=== PATIENT | female | born 1975 | race Caucasian/White ===

== ENCOUNTER 2022-11-14 09:10 | Outpatient (OUT) | payer OTHER, SELFPAY ==
[2022-11-14 09:23] LABS: Basophils Percent Auto 0.8 % (0.2-2.0); Eosinophils Absolute Auto 0.1 10^3/uL (0.0-0.7); Eosinophils Percent Auto 3.8 % (0.9-7.0); Hematocrit 38.8 % (36.0-48.0); Hemoglobin 12.7 g/dL (12.0-16.0); Immature Granulocytes Abs Auto 0.01 10^3/uL (0.00-0.03); Immature Granulocytes Pct Auto 0.3 % (0.0-0.5); Lymphocytes Absolute Auto 0.9 10^3/uL (1.2-3.8); Lymphocytes Percent Auto 24.3 % (20.5-60.0); Mean Corpuscular HGB Conc 32.7 g/dL (29.9-35.2); Mean Corpuscular Hemoglobin 29.8 pg (26.7-34.0); Mean Corpuscular Volume 91.1 fL (81.0-99.0); Mean Platelet Volume 9.4 fL (9.5-13.5); Monocytes Absolute Auto 0.5 10^3/uL (0.3-0.8); Monocytes Percent Auto 14.5 % (1.7-12.0); Neutrophils Absolute Auto 2.1 10^3/uL (1.4-6.5); Neutrophils Percent Auto 56.3 % (43.0-75.0); Platelet Count 258 10^3/uL (150-450); Red Blood Count 4.26 10^6/uL (4.20-5.40); Red Cell Distribution Width 12.9 % (11.0-15.0); White Blood Count 3.7 10^3/uL (4.0-11.0)
[2022-11-14 09:38] LABS: Estimated Average Glucose 108 mg/dL; Glycohemoglobin A1C 5.4 % (4.5-6.2)
[2022-11-14 09:48] LABS: Alanine Aminotransferase 20 U/L (14-59); Albumin Globulin Ratio 1.2; Albumin Level 3.8 g/dL (3.4-5.0); Alkaline Phosphatase 92 U/L (46-116); Anion Gap 12.5; Aspartate Amino Transferase 14 U/L (15-37); BUN Creatinine Ratio 12.4; Bilirubin Total 0.9 mg/dL (0.2-1.0); Calcium 8.8 mg/dL (8.5-10.1); Carbon Dioxide 28.5 mmol/L (21.0-32.0); Chloride 103 mmol/L (98-107); Cholesterol 199 mg/dL (<=200); Estimated GFR (African America >60 (>=60); Estimated GFR (Non-African Ame >60 (>=60); Globulin 3.3 g/dL; Glucose 91 mg/dL (74-106); HDL Cholesterol 67 mg/dL (40-60); Sodium 140 mmol/L (136-145); Total Protein 7.1 g/dL (6.4-8.2); Triglycerides 56 mg/dL (<=150); VLDL CHOLESTEROL 11.2 mg/dL
[2022-11-15 11:14] LABS: Insulin 5.7 uIU/mL (2.6-24.9)
== END 2022-11-14 09:11 | disposition home or self-care (01) ==
LOC: MAMMO 09:10
PROVIDERS: PCP Nurse Practitioner Family; Visit Provider Nurse Practitioner Family
DX: R53.83 Other fatigue (principal); R73.09 Other abnormal glucose; D64.9 Anemia, unspecified
CPT/HCPCS: 36415; 80053; 80061; 83036; 83525; 83540; 84436; 84443; 84479; 85025

== ENCOUNTER 2022-12-02 09:33 | Outpatient (OUT) | payer OTHER, SELFPAY ==
--- NOTE | 2022-12-02 09:36 | MM_ITS ---
Patient: BOB SANFORD Exam Date: 12/02/2022 : 1975 Gender:F Ordering : [facility] Admission #: [id number] Family : Order #: [id number] CLICK HERE TO VIEW EXAM RADIOLOGY REPORT PROCEDURE: MM TOMOSYNTHESIS SCREENING BI COMPARISON: MG MAMM SCREEN 3D CAESAR CAD, 08/16/2021. MG MAMM SCREEN CAESAR W CAD, 01/18/2020. MG MAMM SCREEN CAESAR W CAD, 11/04/2018. MG MAMM SCREEN CAESAR W CAD, 06/28/2015. INDICATIONS: Screening mammogram Z12.31 Calculator Name NCI Breast Cancer Risk Assessment Tool 5 Year Breast Cancer Risk 1.00% Lifetime Breast Cancer Risk 10.30% Personal Breast Cancer No Personal Ovarian Cancer No Treatments None Family Cancers Grandmother-maternal with breast cancer at age ~68. LOCATION: [facility] BREAST COMPOSITION: Heterogeneously dense,which may obscure small masses. FINDINGS: DIAGNOSTIC CATEGORY 1--NEGATIVE. RIGHT BREAST: No significant suspicious finding. No significant change has occurred. LEFT BREAST: No significant suspicious finding. No significant change has occurred. RECOMMENDATIONS: ROUTINE MAMMOGRAM AND CLINICAL EVALUATION IN 12 MONTHS. PLEASE NOTE: A NORMAL MAMMOGRAM DOES NOT EXCLUDE THE POSSIBILITY OF BREAST CANCER. A CLINICALLY SUSPICIOUS PALPABLE LUMP SHOULD BE BIOPSIED. Dictated by: Naun Graham M.D. on 12/02/2022 at 14:41 Approved by: Naun Graham M.D. on 12/02/2022 at 14:45
[2022-12-02 10:53] LABS: Free T3 2.49 pg/mL (2.18-3.98); Thyroid Stimulating Hormone 2.331 uIU/mL (0.358-3.740)
== END 2022-12-02 09:34 | disposition home or self-care (01) ==
LOC: LAB 09:33
PROVIDERS: PCP Nurse Practitioner Family; Visit Provider Nurse Practitioner Family
DX: Z12.31 Encounter for screening mammogram for malignant neoplasm of breast (principal); E03.9 Hypothyroidism, unspecified; Z80.3 Family history of malignant neoplasm of breast
CPT/HCPCS: 36415; 77063; 77067; 84436; 84443; 84481

== ENCOUNTER 2023-06-30 21:33 | Outpatient (REF) | payer OTHER, SELFPAY ==
[2023-07-04 12:09] LABS: Age Gdln ACOG Testing Note (.); HPV Aptima Negative (Negative); IGP, Aptima HPV, rfx 16/18,45 Note (.)
== END 2023-06-30 21:34 | disposition home or self-care (01) ==
LOC: LAB 21:33
PROVIDERS: PCP Nurse Practitioner Family; Visit Provider Physician Assistant
DX: Z01.419 Encounter for gynecological examination (general) (routine) without abnormal findings (principal)
CPT/HCPCS: 87624; G0145

== ENCOUNTER 2024-01-01 11:29 | Outpatient (OUT) | payer OTHER, SELFPAY ==
--- NOTE | 2024-01-01 11:33 | MM_ITS ---
Patient Name: BOB SANFORD MR#: [id number] : 1975 Exam Date: 01/01/2024 Ordering Doctor: NANCY Hernández . RADIOLOGY REPORT PROCEDURE: MM TOMOSYNTHESIS SCREENING BI COMPARISON: MM TOMOSYNTHESIS SCREENING BI, 12/02/2022. MG MAMM SCREEN 3D CAESAR CAD, 08/16/2021. INDICATIONS: Screening Calculator Name NCI Breast Cancer Risk Assessment Tool 5 Year Breast Cancer Risk 1.00% Lifetime Breast Cancer Risk 10.20% Personal Breast Cancer No Personal Ovarian Cancer No Treatments None Family Cancers Grandmother-maternal with breast cancer at age ~68. LOCATION: [facility] BREAST COMPOSITION: The breasts are heterogeneously dense,which may obscure small masses. FINDINGS: DIAGNOSTIC CATEGORY 1--NEGATIVE. NO CHANGE FROM COMPARISON ASSESSMENT. Scattered benign-appearing lymph nodes are present. RIGHT BREAST: No significant suspicious finding. LEFT BREAST: No significant suspicious finding. RECOMMENDATIONS: ROUTINE MAMMOGRAM AND CLINICAL EVALUATION IN 12 MONTHS. PLEASE NOTE: A NORMAL MAMMOGRAM DOES NOT EXCLUDE THE POSSIBILITY OF BREAST CANCER. A CLINICALLY SUSPICIOUS PALPABLE LUMP SHOULD BE BIOPSIED. Dictated by: Guille Ham MD on 01/01/2024 at 13:13 Approved by: Guille Ham MD on 01/01/2024 at 13:14
--- OUTSIDE RECORDS SUMMARY | 2024-01-01 11:34 | XMS_ITS | CCD ---
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 Name Role Phone LUZ ALBARADO Admitting Unavailable LUZ ALBARADO Attending Unavailable [facility] [place] DR SAUCEDO Primary Care Unavailable KARASIK ., DR ORTIZ Admitting Unavailabl e KARASIK ., DR ORTIZ Consulting Unavailabl e KARASIK ., DR ORTIZ Attending Unavailabl e [facility] [place], DR SAUCEDO Primary Care Unavailable [place], DR MARK Alvarez Consulting Unavailable BELJONI, [facility] Primary Care Unavailable KARASIK ., DR ORTIZ Admitting Unavailabl e KARASIK ., DR ORTIZ [facility] Primary Care Unavailable DIAB .SUSANA Admitting Unavailable DIAB ., SUSANA Consulting Unavailable DIAB .SUSANA Attending Unavailable Cierra Villalobos Unavailable EDWIN ANAND Attending Unavailable Medications Current Medications Medication Drug Class(es) Dates Sig (Normalized) Sig (Original) 24 hr venlafaxine 75 mg extended release oral capsule (1 source) Serotonin and Norepinephrine Reuptake Inhibitor take 1 capsule by mouth every twenty-four hours Venlafaxine HCl ER 75 MG 1 tablet once a day Active Problems Active Problems Problem Classification Problem Date Documented Da te Episodic/Chronic Immunizations and screening for infectious disease (1 source) Encounter for screening for human papillomavirus (HPV); Translations: [ENC SCREENING HUMAN PAPILLOMAVIRUS] Onset: 07-02-2022 Episodic Miscellaneous mental health disorders (1 source) Other symptoms and signs involving emotional state Episodic Other ear and sense organ disorders (1 source) Impacted cerumen, right ear Episodic Other gastrointestinal disorders (1 source) Loose stool; Translations: [Other fecal abnormalities] Episodic Other nutritional; endocrine; and metabolic disorders (1 source) Weight loss; Translations: [Abnormal weight loss] Episodic Other screening for suspected conditions (not mental disorders or infectious disease) (8 sources) Encounter for screening for malignant neoplasm of cervix; Translations: [Encounter for screening mammogram for malignant neoplasm of breast] Onset: 08-16-2021 Episodic Substance-related disorders (1 source) Nicotine dependence, cigarettes, uncomplicated; Translations: [NICOTINE DEPEND CIGARETTES UNCOMP] Onset: 06-06-2022 Chronic Syncope (4 sources) Syncope and collapse; Translations: [SYNCOPE AND COLLAPSE] Onset: 06-01-2022 Episodic Viral infection (1 source) COVID-19; Translations: [COVID-19] Onset: 06-06-2022 Past or Other Problems Problem Classification Problem Date Documented Da te Episodic/Chronic Residual codes; unclassified (1 source) Family history of malignant neoplasm of breast; Translations: [FAMILY HX MALIG NEOPLASM OF BREAST] Onset: 08-20-2021 Episodic Results Test Name Value Interpretation Reference Range Facil ity PAP ACOG PANEL 2: 30 to 65on 07-09-2022 . . Normal [facility] Comment on above: Result Comment: Perf ormed at: WB Performed By: #### [id number] #### [facility] [address] [address] [address] Surinder Hernandez Age Gdln ACOG Testing 30-65 Normal [facility] Comment on above: Performed By: #### [id number] #### [facility] [address] [address] [address] Surinder Hernandez DIAGNOSIS: Comment Normal [facility] Comment on above: Result Comment: NEGA TIVE FOR INTRAEPITHELIAL LESION OR MALIGNANCY. PREDOMINANCE OF COCCOBACILLI CONSISTENT WITH SHIFT IN VAGINAL MILLIE IS PRESENT. Performed at: WB Performed By: #### [id number] #### [facility] [address] [address] [address] Surinder Hernandez HPV Aptima Negative Normal Negative [facility] Comment on above: Result Comment: This nucleic acid amplification test detects fourteen high-risk HPV types (16,18,31,33,35,39,45,51,52,56,58,59,66,68) without differentiation. Performed at: =G Performed By: #### [id number] #### [facility] [address] [place] [address] Dr. Surinder Hernandze HPV Genotype Reflex Comment Normal [facility] Comment on above: Result Comment: Crit hitesh not met, HPV Genotype not performed. Performed at: WB Performed By: #### [id number] #### [facility] [address] [place] [address] Dr. Surinder Hernandez Methodology: Comment Normal [facility] Comment on above: Result Comment: This liquid based ThinPrep(R) pap test was screened with the use of an image guided system. Performed at: WB Performed By: #### [id number] #### [facility] [address] [place] [address] Dr. Surinder Hernandez Note: Comment Normal [facility] Comment on above: Result Comment: The Pap smear is a screening test designed to aid in the detection of premalignant and malignant conditions of the uterine cervix. It is not a diagnostic procedure and should not be used as the sole means of detecting cervical cancer. Both false-positive and false-negative reports do occur. . Performed at: WB Performed By: #### [id number] #### [facility] [address] [place] [address] Dr. Surinder Hernandez Performed by: Comment Normal [facility] Comment on above: Result Comment: Bruno Bustamante, Design Verification Engineer (ASCP) Performed at: WB Performed By: #### [id number] #### [facility] [address] [place] [address] Dr. Surinder Hernandez Specimen adequacy: Comment Normal [facility] Comment on above: Result Comment: Sati sfactory for evaluation. Endocervical and/or squamous metaplastic cells (endocervical component) are present. Performed at: WB Performed By: #### [id number] #### [facility] [address] [place] [address] Dr. Surinder Hernandez CBC W MANUAL DIFFon 06-01-19 23 ATYPICAL LYMPH # 0.10 103/ul Normal [facility] Comment on above: Performed By: #### C BCTARRS #### [facility] [address] [place] [address] Dr. Surinder Hernandez ATYPICAL LYMPH % 3 % Normal [facility] Comment on above: Performed By: #### C BCMAN #### [facility] [address] [place] [address] Dr. Surinder Hernandez BAND # Normal 0.0-0.3 [facility] Comment on above: Performed By: #### C BCMAN #### [facility] [address] [place] [address] Dr. Surinder Hernandez BAND % Normal 0-5 [facility] Comment on above: Performed By: #### C BCMAN #### [facility] [address] [place] [address] Dr. Surinder Hernandez BASOM # 0.00 103/ul Normal 0.00-0.10 [facility] Comment on above: Performed By: #### C BCMAN #### [facility] [address] [place] [address] Dr. Surinder Hernandez BASOM % 0.0 % Critically low 0.2-2.0 [facility] Comment on above: Performed By: #### C BCAMRIT #### [facility] [address] [place] [address] Dr. Surinder Hernandez BLAST # Normal [facility] Comment on above: Performed By: #### C BCMAN #### [facility] [address] [place] [address] Dr. Surinder Hernandez BLAST % Normal [facility] Comment on above: Performed By: #### C BCMAN #### [facility] [address] [place] [address] Dr. Surinder Hernandez CORRECTED WBC Normal 4.0-11.0 [facility] Comment on above: Performed By: #### C BCMAN #### [facility] [address] [place] [address] Dr. Surinder Hernandez EOS # 0.00 103/ul Normal 0.00-0.70 [facility] Comment on above: Performed By: #### C BCMAN #### [facility] [address] [place] [address] Dr. Surinder Hernandez EOS% 0.0 % Critically low 0.9-7.0 [facility] Comment on above: Performed By: #### C BCAMRIT #### [facility] [address] [address] [address] Surinder Hernandez HCT 39.5 % Normal 36.0-48.0 [facility] Comment on above: Performed By: #### C TIFFANY #### [facility] [address] [address] [address] Surinder Hernandez HGB 13.0 g/dl Normal 12.0-16.0 [facility] Comment on above: Performed By: #### C TIFFANY #### [facility] [address] [address] [address] Surinder Hernandez LYMPHM # 0.59 103/ul Critically low 1.20-3.80 [facility] Comment on above: Performed By: #### C TIFFANY #### [facility] [address] [place] [address] Dr. Surinder Hernandez LYMPHM% 17.0 % Critically low 20.5-60.0 [facility] Comment on above: Performed By: #### C TIFFANY #### [facility] [address] [place] [address] Dr. Surinder Hernandez MCH 30.3 pg Normal 26.7-34.0 [facility] Comment on above: Performed By: #### C TIFFANY #### [facility] [address] [place] [address] Dr. Surinder Hernandez MCHC 32.9 g/dl Normal 29.9-35.2 [facility] Comment on above: Performed By: #### C TIFFANY #### [facility] [address] [place] [address] Dr. Surinder Hernandez MCV 92.1 fL Normal 81.0-99.0 [facility] Comment on above: Performed By: #### C TIFFANY #### [facility] [address] [place] [address] Dr. Surinder Hernandez METAMYELOCYTE # Normal [facility] Comment on above: Performed By: #### C TIFFANY #### [facility] [address] [place] [address] Dr. Surinder Hernnadez METAMYELOCYTE % Normal [facility] Comment on above: Performed By: #### C TIFFANY #### [facility] [address] [address] [address] Surinder Hernandez MONOM# 0.81 103/ul Critically high 0.30-0.80 [facility] Comment on above: Performed By: #### C TIFFANY #### [facility] [address] [place] [address] Dr. Surinder Hernandez MONOM% 23.0 % Critically high 1.7-12.0 [facility] Comment on above: Performed By: #### C TIFFANY #### [facility] [address] [place] [address] Dr. Surinder Hernandez MPV 9.9 fL Normal 9.5-13.5 [facility] Comment on above: Performed By: #### C TIFFANY #### [facility] [address] [place] [address] Dr. Surinder Hernandez MYELOCYTE # Normal [facility] Comment on above: Performed By: #### C TIFFANY #### [facility] [address] [place] [address] Dr. Surinder Hernandez MYELOCYTE % Normal [facility] Comment on above: Performed By: #### C TIFFANY #### [facility] [address] [place] [address] Dr. Surinder Hernandez NRBC Normal [facility] Comment on above: Performed By: #### C TIFFANY #### [facility] [address] [place] [address] Dr. Surinder Hernandez PLT 218 103/ul Normal 150-450 [facility] Comment on above: Performed By: #### C TIFFANY #### [facility] [address] [place] [address] Dr. Surinder Hernandez RBC 4.29 106/ul Normal 4.20-5.40 [facility] Comment on above: Performed By: #### C TIFFANY #### [facility] [address] [place] [address] Dr. Surinder Hernandez RDW 13.1 % Normal 11.0-15.0 [facility] Comment on above: Performed By: #### C TIFFANY #### [facility] [address] [place] [address] Dr. Surinder Hernandez SEG # 2.00 103/ul Normal 1.40-6.50 [facility] Comment on above: Performed By: #### C TIFFANY #### [facility] [address] [place] [address] Dr. Surinder Hernandez SEG % 57.0 % Normal 43.0-75.0 [facility] Comment on above: Performed By: #### C TIFFANY #### [facility] [address] [place] [address] Dr. Surinder Hernandez WBC 3.5 103/ul Critically low 4.0-11.0 [facility] Comment on above: Performed By: #### C TIFFANY #### [facility] [address] [place] [address] Dr. Surinder Hernandez Covid-19 PCR (CVDTB)on 05-22 SARS-CoV-2 (COVID-19) RNA ANTONIO+probe Ql (Unsp spec) Detected Abnormal NOT DETECTED [facility] Comment on above: Result Comment: This test is not yet approved or cleared by the [place] FDA. When there are no FDA-approved or cleared tests available, and other criteria are met, FDA can make tests available under an emergency access mechanism called an Emergency Use Authorization (EUA). The EUA for this test is supported by the Industrial/Organizational Psychologist of Health and Human Service's (HHS's) declaration that circumstances exist to justify the emergency use of in vitro diagnostics for the detection and/or diagnosis of the virus that causes COVID-19. This EUA will remain in effect (meaning this test can be used) for the duration of the COVID-19 declaration justifying emergency of IVDs, unless it is terminated or revoked by FDA (after which the test may no longer be used). Performed By: #### C VDTBH #### [facility] [address] [place] [address] Dr. Surinder Hernandez INFLUENZA A AND B AGon 06-01 INFLUANEGH SEE BELOW Normal [facility] Comment on above: Result Comment: Nega tive for Flu A protein angiten. Infection due to Flu A cannot be ruled out. Flu A angiten in the sample may be below the detection limit of the test. Performed By: #### I NFLUAB #### [facility] [address] [place] [address] Dr. Surinder Hernandez [facility] SEE BELOW Normal [facility] Comment on above: Result Comment: Nega tive for Flu B protein antigen. Infection due to Flu B cannot be ruled out. Flu B antigen in the sample may be below the detection limit of the test. Performed By: #### I NFLUAB #### [facility] [address] [place] [address] Dr. Surinder Hernandez INFLUENZA A AG Negative Normal NEGATIVE SEE COMMENT [facility] Comment on above: Performed By: #### I NFLUAB #### [facility] [address] [place] [address] Dr. Surinder Hernandez INFLUENZA B AG Negative Normal NEGATIVE SEE COMMENT [facility] Comment on above: Performed By: #### I NFLUAB #### [facility] [address] [place] [address] Dr. Surinder Hernandez PROF 14(COMP METB)on 023 Albumin [Mass/Vol] 3.6 g/dL Normal 3.4-5.0 [facility] Comment on above: Performed By: #### C MP #### [facility] [address] [place] [address] Dr. Surinder Hernandez Albumin/Globulin [Mass ratio] 1.2 {ratio} Normal [facility] Comment on above: Performed By: #### C MP #### [facility] [address] [place] [address] Dr. Surinder Hernandez ALP [Catalytic activity/Vol] 84 U/L Normal 46-116 [facility] Comment on above: Performed By: #### C MP #### [facility] [address] [place] [address] Dr. Surinder Hernandez ALT [Catalytic activity/Vol] 23 U/L Normal 14-59 [facility] Comment on above: Performed By: #### C MP #### [facility] [address] [address] [address] Surinder Hernandez Anion gap [Moles/Vol] 11.1 mmol/L Normal [facility] Comment on above: Performed By: #### C MP #### [facility] [address] [address] [address] Surinder Hernandez AST [Catalytic activity/Vol] 30 U/L Normal 15-37 [facility] Comment on above: Performed By: #### C MP #### [facility] [address] [address] [address] Surinder Hernandez Bilirubin [Mass/Vol] 0.3 mg/dL Normal 0.2-1.0 [facility] Comment on above: Performed By: #### C MP #### [facility] [address] [address] [address] Surinder Hernandez Calcium [Mass/Vol] 8.5 mg/dL Normal 8.5-10.1 [facility] Comment on above: Performed By: #### C MP #### [facility] [address] [address] [address] Surinder Hernandez Chloride [Moles/Vol] 102 mmol/L Normal 98-107 [facility] Comment on above: Performed By: #### C MP #### [facility] [address] [address] [address] Surinder Hernandez CO2 [Moles/Vol] 28.0 mmol/L Normal 21.0-32.0 [facility] Comment on above: Performed By: #### C MP #### [facility] [address] [address] [address] Surinder Hernandez Creatinine [Mass/Vol] 0.89 mg/dL Normal 0.55-1.02 [facility] Comment on above: Performed By: #### C MP #### [facility] [address] [address] [address] Surinder Hernandez EGFR-AF TRINIDADIAN >60 Normal >=60 [facility] Comment on above: Performed By: #### C MP #### [facility] [address] [place] [address] Dr. Surinder Hernandez EGFR-NON AF TRINIDADIAN >60 Normal >=60 [facility] Comment on above: Performed By: #### C MP #### [facility] [address] [place] [address] Dr. Surinder Hernandez Globulin (S) [Mass/Vol] 3.1 g/dL Normal [facility] Comment on above: Performed By: #### C MP #### [facility] [address] [address] [address] Surinder Hernandez Glucose [Mass/Vol] 92 mg/dL Normal 74-106 [facility] Comment on above: Performed By: #### C MP #### [facility] [address] [place] [address] Dr. Surinder Hernandez Potassium [Moles/Vol] 4.1 mmol/L Normal 3.5-5.1 [facility] Comment on above: Performed By: #### C MP #### [facility] [address] [place] [address] Dr. Surinder Hernandez Protein [Mass/Vol] 6.7 g/dL Normal 6.4-8.2 [facility] Comment on above: Performed By: #### C MP #### [facility] [address] [place] [address] Dr. Surinder Hernandez Sodium [Moles/Vol] 137 mmol/L Normal 136-145 [facility] Comment on above: Performed By: #### C MP #### [facility] [address] [place] [address] Dr. Surinder Hernandez Urea nitrogen [Mass/Vol] 10.0 mg/dL Normal 7.0-18.0 [facility] Comment on above: Performed By: #### C MP #### [facility] [address] [place] [address] Dr. Surinder Hernandez Urea nitrogen/Creatinine [Mass ratio] 11.2 mg/mg Normal [facility] Comment on above: Performed By: #### C MP #### [facility] [address] [place] [address] Dr. Surinder Hernandez TROPONIN, HIGH SENSITIVITYon 06-01-2022 HSTROP 6.0 pg/mL Normal 4.0-51.3 [facility] Comment on above: Result Comment: CUT- OFF POINTS HAVE BEEN ESTABLISHED BASED ON THE FOURTH UNIVERSAL DEFINITIONS OF MYOCARDIAL INFARCTION. THE UPPER REFERENCE LIMIT (URL) OF TROPONIN, DEFINED THE 99TH PERCENTILE OF cTnI DISTRIBUTION IN A REFERENCE POPULATION, HAS BEEN CONFIRMED THE DECISION THRESHOLD FOR IN DIAGNOSIS. Performed By: #### H STROPN #### [facility] [address] [address] [address] Surinder Hernandez HSTROP 4.8 pg/mL Normal 4.0-51.3 [facility] Comment on above: Result Comment: CUT- OFF POINTS HAVE BEEN ESTABLISHED BASED ON THE FOURTH UNIVERSAL DEFINITIONS OF MYOCARDIAL INFARCTION. THE UPPER REFERENCE LIMIT (URL) OF TROPONIN, DEFINED THE 99TH PERCENTILE OF cTnI DISTRIBUTION IN A REFERENCE POPULATION, HAS BEEN CONFIRMED THE DECISION THRESHOLD FOR IN DIAGNOSIS. Performed By: #### H STROPN #### [facility] [address] [address] [address] Surinder Hernandez MG MAMM SCREEN 3D ADAIR CADon 08-16-2021 MG MAMM SCREEN 3D ADAIR CAD Patient: APRYL SANFORD Exam Date: 08/16/2021 : 1975 Gender:F Ordering : DR ANGEL SINGH . Admission #: [id number] Family : Order #: [id number] CLICK HERE TO VIEW EXAM RADIOLOGY REPORT PROCEDURE: MAMMOGRAM SCREENING 3D BILATERAL CAD COMPARISON: MG MAMM SCREEN ADAIR W CAD, 11/04/2018. MG MAMM SCREEN ADAIR W CAD, 01/18/2020. INDICATIONS: Screening mammography Calculator Name NCI Breast Cancer Risk Assessment Tool 5 Year Breast Cancer Risk 0.90% Lifetime Breast Cancer Risk 10.60% Personal Breast Cancer No Personal Ovarian Cancer No Treatments None Family Cancers Grandmother-maternal with breast cancer at age 68. LOCATION: [facility] BREAST COMPOSITION: Extremely dense, which lowers the sensitivity of mammography. FINDINGS: DIAGNOSTIC CATEGORY 1--NEGATIVE. NO CHANGE FROM COMPARISON ASSESSMENT. Scattered benign-appearing lymph nodes are present. RIGHT BREAST: No significant suspicious finding. LEFT BREAST: No significant suspicious finding. RECOMMENDATIONS: ROUTINE MAMMOGRAM AND CLINICAL EVALUATION IN 12 MONTHS. PLEASE NOTE: A NORMAL MAMMOGRAM DOES NOT EXCLUDE THE POSSIBILITY OF BREAST CANCER. A CLINICALLY SUSPICIOUS PALPABLE LUMP SHOULD BE BIOPSIED. Dictated by: Mark Ham MD on 08/17/2021 at 07:03 Approved by: Mark Ham MD on 08/17/2021 at 07:18 Normal [facility] Auth for Release of Medical Recordson 07-07-2020 Auth for Release of Medical Records [id number]#1. 00CD:127 Normal [facility] Lab Reportson 05-29-2020 Lab Reports [id number]#1.0 0CD:127 Normal [facility] Immunization Recordson 02-22 Immunization Records [id number]#1. 00CD:127 Normal [facility] Lab Reportson 01-19-2020 Lab Reports [id number]#1.00 CD:127 Normal [facility] Outside Mammographyon 2019 Outside Mammography [id number] Normal [facility] Family Medicine Office/Clini c Noteon 01-04-2020 Family Medicine Office/Clinic Note Chief Complaint establish care HPI Staff PT is NEW in this office, needs established. Denies any concerns at this time. History of Present Illness Patient is here to establish care. She is seeing [facility] and she had neg PAP in 2019. She needs refills today. She has scratchy throat for several weeks. She has had issues with allergies in the past. She does not take any routine allergy med. She has had labs but has been several years. She is a smoker and smokes about 2/day. She is taking Effexor for mood and anxiety. She has been on this for a few years and says she feels does is working well and she has minimal symptoms. She has no SE from the medications Review of Systems ROS - Clinical Support GI Symptoms: None Cardiopulmonary Symptoms: None General Symptoms: None Genitourinary Symptoms: None Neuromuscular Symptoms: None Pain Symptoms: No Skin Symptoms: None PHQ Score Initial Depression Screen Score: 0 ROS - Provider Constitutional: no fever, no chills, no sweats, no weakness. Skin: no Jaundice, no rash, no lesions, no petechiae. ENMT: no ear pain, no sore throat, no congestion, no hoarseness. Respiratory: no shortness of breath, no cough, no orthopnea, no wheezing. Cardiovascular: no chest pain, no palpitations, no edema. Gastrointestinal: no nausea, no vomiting, no diarrhea, no GI bleeding. Genitourinary: no dysuria, no hematuria, no discharge, no pain. Musculoskeletal: no back pain, no trauma. Neurologic: no headache, no dizziness, no numbness, no weakness. Psychiatric: no sleeping problems, no irritability, no mood swings/depression. Heme/Lymph: no bleeding tendency, no bruising tendency, no petechiae, no swollen no catherine. Allergy/Immuno logic: no seasonal allergies, no food allergies, no recurrent infections, no impaired immunity. Physical Exam Vitals & Measurements T: 36.7 ?C (Temporal Artery) HR: 94(Peripheral) BP: 100/68 SpO2: 98% HT: 167.0 cm HT: 167 cm WT: 64.8 kg WT: 64.8 kg BMI: 23.23 General: Well developed, well nourished, in no acute distress Eyes: Pupils equal, round, and reactive to light. Conjunctivae and sclerae normal, and extraocular movements intact Ears: No deformity or lesion of external ear. Canals and TM appear normal bilaterally. TM?s intact, not inflamed, with normal light reflex. Hearing grossly normal to conversational speech Nose: No deformity, discharge, inflammation, or lesions Mouth: Mucous membranes moist. Normal oropharynx, and posterior pharynx without lesions or exudates. Tongue normal Neck: Neck supple. No masses or palpable cervical nodes. Trachea midline. Thyroid without nodules, masses, tenderness, or enlargement Lungs: Normal respiratory effort and clear to auscultation Cardio: Regular rate and rhythm, normal S1 and S2, no murmur, no rub Abdomen: Soft, non-distended, non-tender Musculoskeletal: No deformity or scoliosis noted. Normal range of motion. Joints normal. No erythema, edema, effusion, or ecchymosis Extremity: No clubbing, cyanosis, edema, or deformity, with normal ROM in both upper and lower bilateral extremities Neurologic: Grossly normal Skin: No rashes, ulcerations, or suspicious lesions Mental Status: Alert and oriented x3. Normal mood and affect Assessment/Plan 1. BMI 23.0-23.9, adult (Z68.23: Body mass index (BMI) 23.0-23.9, adult) 2. Wellness examination (Z00.00: Encounter for general adult medical examination without abnormal findings) Exam completed. Preventative care UTD. Will check routine preventative labs and call with results. 3. Depression (F32.9: Major depressive disorder, single episode, unspecified) Stable on Effexor. No SE. Will continue current medications and see patient back in 6 months for recheck. Screening for cardiovascular condition (Z13.6: Encounter for screening for cardiovascular disorders) labs ordered Ordered: Comprehensive Metabolic Panel Lipid Panel Screening mammogram, encounter for (Z12.31: Encounter for screening mammogram for malignant neoplasm of breast) JOHN ordered Ordered: MA Mamm Screen w/CAD if perf and 3D [place] Orders: venlafaxine, 75 mg = 1 cap(s), Oral, Daily, # 30 tab(s), Refills(s) 5, Pharmacy: [facility], 167, cm, 01/03/20 14:11:00 EDT, Height/Length Dosing, 64.8, kg, 01/03/20 14:11:00 EDT, Weight Dosing Follow-up No qualifying data available Patient Education Preventive Care for Adults, Female Problem List/Past Medical History Ongoing BMI 23.0-23.9, adult Depression Wellness examination Historical No qualifying data Procedure/Surgical History Fistula, Tonsillectomy. Medications Cryselle 28 30 mcg-0.3 mg Tab, 1 tab(s), Oral, Daily, 4 refills venlafaxine 75 mg Cap-ER, 75 mg= 1 cap(s), Oral, Daily, 5 refills Allergies No Known Medication Allergies Social History Alcohol 1-2 times per year, 11/04/2018 Sexual Sexually active: Yes., 11/04/2018 Tobacco 4 or less cigarettes(less than 1/4 pack)/day in last 30 days Tobacco Use:. Never Smokeless Tobacco Use:. Cigarettes, 01/03/2020 Family History Primary malignant neoplasm of female breast: Grandparent. [facility] Comment on above: Result Comment: Elec tronically Signed By: Everett MARTINEZ NP\.nahid\Date and Time Signed: 01/04/20 09:17 EDT Patient Educationon 01-04-20 20 Patient Education Family Medicine Preventive Care for Adults, Female A healthy lifestyle and preventive care can promote health and wellness. Preventive health guidelines for women include the following ya practices. ? A routine yearly physical is a good way to check with your caregiver about your health and preventive screening. It is a chance to share any concerns and updates on your health, and to receive a thorough exam. ? Visit your dentist for a routine exam and preventive care every 6 months. [place] your teeth twice a day and floss once a day. Good oral hygiene prevents tooth decay and gum disease. ? The frequency of eye exams is based on your age, health, family medical history, use of contact lenses, and other factors. Follow your caregiver's recommendations for frequency of eye exams. ? Eat a healthy diet. Foods like vegetables, fruits, whole grains, low-fat dairy products, and lean protein foods contain the nutrients you need without too many calories. Decrease your intake of foods high in solid fats, added sugars, and salt. Eat the right amount of calories for you.?Get information about a proper diet from your caregiver, if necessary. ? Regular physical exercise is one of the most important things you can do for your health. Most adults should get at least 150 minutes of moderate-intensity exercise (any activity that increases your heart rate and causes you to sweat) each week. In addition, most adults need muscle-strengthening exercises on 2 or more days a week. ? Maintain a healthy weight. The body mass index (BMI) is a screening tool to identify possible weight problems. It provides an estimate of body fat based on height and weight. Your caregiver can help determine your BMI, and can help you achieve or maintain a healthy weight.?For adults 20 years and older: ? A BMI below 18.5 is considered underweight. ? A BMI of 18.5 to 24.9 is normal. ? A BMI of 25 to 29.9 is considered overweight. ? A BMI of 30 and above is considered obese. ? Maintain normal blood lipids and cholesterol levels by exercising and minimizing your intake of saturated fat. Eat a balanced diet with plenty of fruit and vegetables. Blood tests for lipids and cholesterol should begin at age 20 and be repeated every 5 years. If your lipid or cholesterol levels are high, you are over 50, or you are at high risk for heart disease, you may need your cholesterol levels checked more frequently.?Ongoing high lipid and cholesterol levels should be treated with medicines if diet and exercise are not effective. ? If you smoke, find out from your caregiver how to quit. If you do not use tobacco, do not start. ? If you are , do not drink alcohol. If you are , be very cautious about drinking alcohol. If you are not and choose to drink alcohol, do not exceed 1 drink per day. One drink is considered to be 12 ounces (355 mL) of beer, 5 ounces (148 mL) of wine, or 1.5 ounces (44 mL) of liquor. ? Avoid use of street drugs. Do not share needles with anyone. Ask for help if you need support or instructions about stopping the use of drugs. ? High blood pressure causes heart disease and increases the risk of stroke. Your blood pressure should be checked at least every 1 to 2 years. Ongoing high blood pressure should be treated with medicines if weight loss and exercise are not effective. ? If you are 55 to 79 years old, ask your caregiver if you should take aspirin to prevent strokes. ? Diabetes screening involves taking a blood sample to check your fasting blood sugar level. This should be done once every 3 years, after age 45, if you are within normal weight and without risk factors for diabetes. Testing should be considered at a younger age or be carried out more frequently if you are overweight and have at least 1 risk factor for diabetes. ? Breast cancer screening is essential preventive care for women. You should practice breast self-awareness. This means understanding the normal appearance and feel of your breasts and may include breast self-examination. Any changes detected, no matter how small, should be reported to a caregiver. Women in their 20s and 30s should have a clinical breast exam (CBE) by a caregiver as part of a regular health exam every 1 to 3 years. After age 40, women should have a CBE every year. Starting at age 40, women should consider having a mammography (breast X-ray test ) every year. Women who have a family history of breast cancer should talk to their caregiver about genetic screening. Women at a high risk of breast cancer should talk to their caregivers about having magnetic resonance imaging (MRI) and a mammography every year. ? The Pap test is a screening test for cervical cancer. A Pap test can show cell changes on the cervix that might become cervical cancer if left untreated. A Pap test is a procedure in which cells are obtained and examined from the lower end of the uterus (cervix ). ? Women should have a Pap test starting at age 21. ? Between ages 21 and 29, Pap tests should be repeated every 2 years. ? Beginning at age 30, you should have a Pap test every 3 years as long as the past 3 Pap tests have been normal. ? Some women have medical problems that increase the chance of getting cervical cancer. Talk to your caregiver about these problems. It is especially important to talk to your caregiver if a new problem develops soon after your last Pap test. In these cases, your caregiver may recommend more frequent screening and Pap tests. ? The above recommendations are the same for women who have or have not gotten the vaccine for human papillomavirus (HPV). ? If you had a hysterectomy for a problem that was not cancer or a condition that could lead to cancer, then you no longer need Pap tests. Even if you no longer need a Pap test, a regular exam is a good idea to make sure no other problems are starting. ? If you are between ages 65 and 70, and you have had normal Pap tests going back 10 years, you no longer need Pap tests. Even if you no longer need a Pap test, a regular exam is a good idea to make sure no other problems are starting. ? If you have had past treatment for cervical cancer or a condition that could lead to cancer, you need Pap tests and screening for cancer for at least 20 years after your treatment. ? If Pap tests have been discontinued, risk factors (such as a new sexual partner) need to be reassessed to determine if screening should be resumed. ? The HPV test is an additional test that may be used for cervical cancer screening. The HPV test looks for the virus that can cause the cell changes on the cervix. The cells collected during the Pap test can be tested for HPV. The HPV test could be used to screen women aged 30 years and older, and should be used in women of any age who have unclear Pap test results. After the age of 30, women should have HPV testing at the same frequency as a Pap test. ? Colorectal cancer can be detected and often prevented. Most routine colorectal cancer screening begins at the age of 50 and continues through age 75. However, your caregiver may recommend screening at an earlier age if you have risk factors for colon cancer. On a yearly basis, your caregiver may provide home test kits to check for hidden blood in the stool. Use of a small camera at the end of a tube, to directly examine the colon (sigmoidoscopy or colonoscopy ), can detect the earliest forms of colorectal cancer. Talk to your caregiver about this at age 50, when routine screening begins. ?Direct examination of the colon should be repeated every 5 to 10 years through age 75, unless early forms of pre-cancerous polyps or small growths are found. ? Hepatitis C blood testing is recommended for all people born from 1945 through 1965 and any individual with known risks for hepatitis C. ? Practice safe sex. Use condoms and avoid high-risk sexual practices to reduce the spread of sexually transmitted infections (STIs). STIs include gonorrhea, chlamydia, syphilis, trichomonas, herpes, HPV, and human immunodeficiency virus (HIV). Herpes, HIV, and HPV are viral illnesses that have no cure. They can result in disability, cancer, and . Sexually active women aged 25 and younger should be checked for chlamydia. Older women with new or multiple partners should also be tested for chlamydia. Testing for other STIs is recommended if you are sexually active and at increased risk. ? Osteoporosis is a disease in which the bones lose minerals and strength with aging. This can result in serious bone fractures. The risk of osteoporosis can be identified using a bone density scan. Women ages 65 and over and women at risk for fractures or osteoporosis should discuss screening with their caregivers. Ask your caregiver whether you should take a calcium supplement or vitamin D to reduce the rate of osteoporosis. ? Menopause can be associated with physical symptoms and risks. Hormone replacement therapy is available to decrease symptoms and risks. You should talk to your caregiver about whether hormone replacement therapy is right for you. ? Use sunscreen with sun protection factor (SPF) of 30 or more. Apply sunscreen liberally and repeatedly throughout the day. You should seek shade when your shadow is shorter than you. Protect yourself by wearing long sleeves, pants, a wide-brimmed hat, and sunglasses year round, whenever you are outdoors. ? Once a month, do a whole body skin exam, using a mirror to look at the skin on your back. Notify your caregiver of new moles, moles that have irregular borders, moles that are larger than a pencil eraser, or moles that have changed in shape or color. ? Stay current with required immunizations. ? Influenza. You need a dose every fall (or winter). The composition of the flu vaccine changes each year, so being vaccinated once is not enough. ? Pneumococcal polysaccharide. You need 1 to 2 doses if you smoke cigarettes or if you have certain chronic medical conditions. You need 1 dose at age 65 (or older) if you have never been vaccinated. ? Tetanus, diphtheria, pertussis (Tdap, Td). Get 1 dose of Tdap vaccine if you are younger than age 65, are over 65 and have contact with an infant, are a healthcare worker, are , or simply want to be protected from whooping cough. After that, you need a Td booster dose every 10 years. Consult your caregiver if you have not had at least 3 tetanus and diphtheria-containing shots sometime in your life or have a deep or dirty wound. ? HPV. You need this vaccine if you are a woman age 26 or younger. The vaccine is given in 3 doses over 6 months. ? Measles, mumps, rubella (MMR). You need at least 1 dose of MMR if you were born in 1957 or later. You may also need a second dose. ? Meningococcal. If you are age 19 to 21 and a first-year college student living in a residence [place], or have one of several medical conditions, you need to get vaccinated against meningococcal disease. You may also need additional booster doses. ? Zoster (shingles). If you are age 60 or older, you should get this vaccine. ? Varicella (chickenpox). If you have never had chickenpox or you were vaccinated but received only 1 dose, talk to your caregiver to find out if you need this vaccine. ? Hepatitis A. You need this vaccine if you have a specific risk factor for hepatitis A virus infection or you simply wish to be protected from this disease. The vaccine is usually given as 2 doses, 6 to 18 months apart. ? Hepatitis B. You need this vaccine if you have a specific risk factor for hepatitis B virus infection or you simply wish to be protected from this disease. The vaccine is given in 3 doses, usually over 6 months. Preventive Services / Frequency Ages 19 to 39 ? Blood pressure check. / Every 1 to 2 years. ? Lipid and cholesterol check. / Every 5 years beginning at age 20. ? Clinical breast exam. / Every 3 years for women in their 20s and 30s. ? Pap test. / Every 2 years from ages 21 through 29. Every 3 years starting at age 30 through age 65 or 70 with a history of 3 consecutive normal Pap tests. ? HPV screening. / Every 3 years from ages 30 through ages 65 to 70 with a history of 3 consecutive normal Pap tests. ? Hepatitis C blood test. / For any individual with known risks for hepatitis C. ? Skin self-exam. / Monthly. ? Influenza immunization. / Every year. ? Pneumococcal polysaccharide immunization. / 1 to 2 doses if you smoke cigarettes or if you have certain chronic medical conditions. ? Tetanus, diphtheria, pertussis (Tdap, Td) immunization. / A one-time dose of Tdap vaccine. After that, you need a Td booster dose every 10 years. ? HPV immunization. / 3 doses over 6 months, if you are 26 and younger. ? Measles, mumps, rubella (MMR) immunization. / You need at least 1 dose of MMR if you were born in 1957 or later. You may also need a second dose. ? Meningococcal immunization. / 1 dose if you are age 19 to 21 and a first-year college student living in a residence [place], or have one of several medical conditions, you need to get vaccinated against meningococcal disease. You may also need additional booster doses. ? Varicella immunization. / Consult your caregiver. ? Hepatitis A immunization. / Consult your caregiver. 2 doses, 6 to 18 months apart. ? Hepatitis B immunization. / Consult your caregiver. 3 doses usually over 6 months. Ages 40 to 64 ? Blood pressure check. / Every 1 to 2 years. ? Lipid and cholesterol check. / Every 5 years beginning at age 20. ? Clinical breast exam. / Every year after age 40. ? Mammogram. / Every year beginning at age 40 and continuing for as long as you are in good health. Consult with your caregiver. ? Pap test. / Every 3 years starting at age 30 through age 65 or 70 with a history of 3 consecutive normal Pap tests. ? HPV screening. / Every 3 years from ages 30 through ages 65 to 70 with a history of 3 consecutive normal Pap tests. ? Fecal occult blood test (FOBT) of stool. / Every year beginning at age 50 and continuing until age 75. You may not need to do this test if you get a colonoscopy every 10 years. ? Flexible sigmoidoscopy or colonoscopy. / Every 5 years for a flexible sigmoidoscopy or every 10 years for a colonoscopy beginning at age 50 and continuing until age 75. ? Hepatitis C blood test. / For all people born from 1945 through 1965 and any individual with known risks for hepatitis C. ? Skin self-exam. / Monthly. ? Influenza immunization. / Every year. ? Pneumococcal polysaccharide immunization. / 1 to 2 doses if you smoke cigarettes or if you have certain chronic medical conditions. ? Tetanus, diphtheria, pertussis (Tdap, Td) immunization. / A one-time dose of Tdap vaccine. After that, you need a Td booster dose every 10 years. ? Measles, mumps, rubella (MMR) immunization. / You need at least 1 dose of MMR if you were born in 1957 or later. You may also need a second dose. ? Varicella immunization. / Consult your caregiver. ? Meningococcal immunization. / Consult your caregiver. ? Hepatitis A immunization. / Consult your caregiver. 2 doses, 6 to 18 months apart. ? Hepatitis B immunization. / Consult your caregiver. 3 doses, usually over 6 months. Ages 65 and over ? Blood pressure check. / Every 1 to 2 years. ? Lipid and cholesterol check. / Every 5 years beginning at age 20. ? Clinical breast exam. / Every year after age 40. ? Mammogram. / Every year beginning at age 40 and continuing for as long as you are in good health. Consult with your caregiver. ? Pap test. / Every 3 years starting at age 30 through age 65 or 70 with a 3 consecutive normal Pap tests. Testing can be stopped between 65 and 70 with 3 consecutive normal Pap tests and no abnormal Pap or HPV tests in the past 10 years. ? HPV screening. / Every 3 years from ages 30 through ages 65 or 70 with a history of 3 consecutive normal Pap tests. Testing can be stopped between 65 and 70 with 3 consecutive normal Pap tests and no abnormal Pap or HPV tests in the past 10 years. ? Fecal occult blood test (FOBT) of stool. / Every year beginning at age 50 and continuing until age 75. You may not need to do this test if you get a colonoscopy every 10 years. ? Flexible sigmoidoscopy or colonoscopy. / Every 5 years for a flexible sigmoidoscopy or every 10 years for a colonoscopy beginning at age 50 and continuing until age 75. ? Hepatitis C blood test. / For all people born from 1945 through 1965 and any individual with known risks for hepatitis C. ? Osteoporosis screening. / A one-time screening for women ages 65 and over and women at risk for fractures or osteoporosis. ? Skin self-exam. / Monthly. ? Influenza immunization. / Every year. ? Pneumococcal polysaccharide immunization. / 1 dose at age 65 (or older) if you have never been vaccinated. ? Tetanus, diphtheria, pertussis (Tdap, Td) immunization. / A one-time dose of Tdap vaccine if you are over 65 and have contact with an , are a healthcare worker, or simply want to be protected from whooping cough. After that, you need a Td booster dose every 10 years. ? Varicella immunization. / Consult your caregiver. ? Meningococcal immunization. / Consult your caregiver. ? Hepatitis A immunization. / Consult your caregiver. 2 doses, 6 to 18 months apart. ? Hepatitis B immunization. / Check with your caregiver. 3 doses, usually over 6 months. Family history and personal history of risk and conditions may change your caregiver's recommendations. Document Released: 06/03/2002 Document Revised: 06/29/2012 Document Reviewed: 09/02/2011 ExitCare? Patient Information ?2013 [employer] [facility]. [facility] Provider Letteron 12-29-2019 Provider Letter December 29, 2019 APRYL SANFORD [address] [place] [address] APRYL SANFORD 1975 Dear Apryl, We have been trying to reach you with no success. It is important that you return our call regarding your request for medication and needing an appointment upon receiving this letter. Also, at the time of your call, please provide us with your current information. Thank you for your prompt attention to this matter. Sincerely, Family Medicine [facility] Vital Signs Date Time Vital Sign Value Performing Clinician Facility 06-02-2023 08:30-0500 Body height 167.64 cm Cierra Wilfredo Other [facility] Other 06-02-2023 08:30-0500 Body mass index (BMI) [Ratio] 24.92 kg/m2 [facility] Wilfredo Other [facility] Other 06-02-2023 08:30-0500 Body weight 70.04 kg Cierra Wilfredo Other [facility] Other 06-02-2023 08:30-0500 Diastolic blood pressure 76 mm[Hg] Cierramario Villalobos Other [facility] Other 06-02-2023 08:30-0500 Systolic blood pressure 112 mm[Hg] [facility] Wilfred[facility] Other [facility] Other Encounters Encounter Date Encounter Type Care Provider Facility Start: 06-30-2023 End: 06-30-2023 ambulatory EDWIN CHENG Not Available Start: 06-02-2023 End: 06-02-2023 ambulatory Cierra Wilfredo Other [facility] Other Start: 06-02-2023 [facility] visit new patient Cierra Wilfredo [facility] Start: 07-01-2022 End: 07-01-2022 ambulatory EVERETT MARTINEZ Facility:[facility] Start: 06-01-2022 End: 06-01-2022 ambulatory EVERETT MARTINEZ Facility:[facility] Start: 02-27-2022 ambulatory LUZ ALBARADO Facility: [facility] Start: 08-16-2021 End: 08-17-[address] ANGEL SINGH . Facility:[facility] Payers Date Payer Category Payer Private Health Insurance [id number] 1975 Unknown [id number] 2.16.84 [id number] 1975 Unknown [id number] 2.16.84 [id number] 1975 Unknown [id number] 2.16.84 [id number] 1975 Unknown [id number] 2.16.84 [id number] 1975 Unknown [id number] 2.16.84 [id number] 1959 Self-pay Unknown [id number] Unknown [id number] Social History Date Type Detail Facility Sex Assigned At [facility] Other Evaluation note 06-02-2023 Note Date & Type Note Facility 06-02-2023 Evaluation note Encounter Date Diagnosis Assessment Notes May, Impacted cerumen of right ear (ICD-10 - H61.21) Verbal consent obtained. R canal flushed w warm water briefly and successfully removed a large quantity of cerumen. Pt tolerated well. May, Depressed mood (ICD-10 - R45.89) Pt will call when refills are needed. Pt states she is stable on med and present dose. [facility] Other History general Narrative - Reported Note Date & Type Note Facility History general Narrative - Reported Type Medical History depression / anxiety Surgical History tonsilectomy Surgical History rhinoplasty Hospitalization History See above [facility] Other Summary Purpose Family History No Family History Records FoundNo Family History Records FoundNo Family History Records Found Advance Directives No Advanced Directives Records FoundNo Advanced Directives Records FoundNo Advanced Directives Records Found Additional Source Comments INFORMATION SOURCE (unrecogn ized section and content) DATE CREATED AUTHOR 07/09/2020 [facility] DATE CREATED AUTHOR AUTHOR'S ORGANIZ ATION 07/10/2022 [facility] DATE CREATED AUTHOR AUTHOR'S ORGANIZ ATION 07/01/2023 [facility] EPIC REASON FOR VISIT (unrecogniz ed section and content) New Old Patient FOR RECORDS PERTAINING TO PATIENTS WHO ARE OR HAVE BEEN ENROLLED IN A CHEMICAL DEPENDENCY/SUBSTANCEABUSE PROGRAM, SOME INFORMATION MAY BE OMITTED. This clinical summary was aggregated from multiple sources. Caution should be exercised in using it in the provision of clinical care. This summary normalizes information from multiple sources, and as a consequence, information in this document may materially change the coding, format and clinical context of patient data. In addition, data may be omitted in some cases. CLINICAL DECISIONS SHOULD BE BASED ON THE PRIMARY CLINICAL RECORDS. [facility]. provides no warranty or guarantee of the accuracy or completeness of information in this document.
== END 2024-01-01 11:30 | disposition home or self-care (01) ==
LOC: MAMMO 11:29
PROVIDERS: PCP Nurse Practitioner Family; Visit Provider Physician Assistant
DX: Z12.31 Encounter for screening mammogram for malignant neoplasm of breast (principal); Z80.3 Family history of malignant neoplasm of breast
CPT/HCPCS: 77063; 77067

== ENCOUNTER 2025-02-01 14:58 | Outpatient (OUT) | payer OTHER, SELFPAY ==
--- OUTSIDE RECORDS SUMMARY | 2025-02-01 15:00 | XMS_ITS | Encounter Summary ---
Author Organization [facility] Address [address] [place] [address] Care Team Providers Care Mold Unloader Name Role Phone Cierra Villalobos MD Primary Care Provider [phone] Encounter Details Date Type Department Care Team (Late st Contact Info) Description 01/01/2024 Clinisync Result Encounter [facility] Department Unsolicited Dia Hernández, NANCY [address] [place] [address] [place] [address] Social History Tobacco Use Types Packs/Day Years Used Date Smoking Tobacco: Former Cigarettes Alcohol Use Standard Drinks/Week Comments Yes 0 (1 standard drink = 0.6 oz pure alcohol) Caffeine intake: 1-2 cups per day Comments No Sex and Gender Information Value Date Recorded Sex Assigned at Not on file Legal Sex Female 7:28 PM EDT Gender Identity Not on file Sexual Orientation Not on file documented as of this encounter Plan of Treatment Not on file documented as of this encounter Procedures Procedure Name Priority Date/Time Associated Diagnosis Comments MM TOMOSYNTHESIS SCREENING BI 01/01/2024 1:14 PM EDT documented in this encounter Results * MM TOMOSYNTHESIS SCREENING BI (01/01/2024 1:14 PM EDT) Anatomical Region Laterality Modality Other 01/01/2024 1:14 PM EDT Narrative 01/01/2024 1:15 PM EDT The [address] [address] Mammography Report Signed Patient: APRYL SANFORD MR#: [id number] : 1975 Acct:[id number] Age/Sex: 48 / F ADM Date: 01/01/24 Loc: MAMMO Attending Dr: Dia Hernández Ordering Physician: Dia Hernández Results: Date of Service: 01/01/24 Follow Up: Procedure(s): MM tomosynthesis screening BI Accession Number(s): [id number] cc: Dia Hernández; LUZ ALBARADO Patient Name: APRYL SANFORD MR#: [id number] : 1975 Exam Date: 01/01/2024 Ordering Doctor: NANCY Hernández . RADIOLOGY REPORT PROCEDURE: MM TOMOSYNTHESIS SCREENING BI COMPARISON: MM TOMOSYNTHESIS SCREENING BI, 12/02/2022. MG MAMM SCREEN 3D CAESAR CAD, 08/16/2021. INDICATIONS: Screening Calculator Name NCI Breast Cancer Risk Assessment Tool 5 Year Breast Cancer Risk 1.00% Lifetime Breast Cancer Risk 10.20% Personal Breast Cancer No Personal Ovarian Cancer No Treatments None Family Cancers Grandmother-maternal with breast cancer at age 68. LOCATION: The [facility] BREAST COMPOSITION: The breasts are heterogeneously dense,which may obscure small masses. FINDINGS: DIAGNOSTIC CATEGORY 1--NEGATIVE. NO CHANGE FROM COMPARISON ASSESSMENT. Scattered benign-appearing lymph nodes are present. RIGHT BREAST: No significant suspicious finding. LEFT BREAST: No significant suspicious finding. RECOMMENDATIONS: ROUTINE MAMMOGRAM AND CLINICAL EVALUATION IN 12 MONTHS. PLEASE NOTE: A NORMAL MAMMOGRAM DOES NOT EXCLUDE THE POSSIBILITY OF BREAST CANCER. A CLINICALLY SUSPICIOUS PALPABLE LUMP SHOULD BE BIOPSIED. Dictated by: Guille Ham MD on 01/01/2024 at 13:13 Approved by: Guille Ham MD on 01/01/2024 at 13:14 Dictated By: Guille Ham M.D. Signed By: 01/01/24 1315 DD/ 1314 TD/TT: Waste Salvager: Procedure Note Radiology, Radiologist, - 01/01/2024 [place] [address] Mammography Report Signed Patient: APRYL SANFORD MMR#: [id number] : 1975Acct:[id number] Age/Sex: 48 / FADM Date: 01/01/24 Loc: MAMMO Attending Dr: Dia Hernández Ordering Physician: Dia HernándezResults: Date of Service: 01/01/24Follow Up: Procedure(s): MM tomosynthesis screening BI Accession Number(s): [id number] cc: Dia Hernández; LUZ ALBARADO Patient Name: APRYL SANFORD MR#: [id number] : 1975 Exam Date: 01/01/2024 Ordering Doctor: NANCY Hernández . RADIOLOGY REPORT PROCEDURE: MM TOMOSYNTHESIS SCREENING BI COMPARISON: MM TOMOSYNTHESIS SCREENING BI, 12/02/2022. MG MAMM [id number] CAESAR CAD, 08/16/2021. INDICATIONS: Screening Calculator Name NCI Breast Cancer Risk Assessment Tool 5 Year Breast Cancer Risk 1.00% Lifetime Breast Cancer Risk 10.20% Personal Breast Cancer No Personal Ovarian Cancer No Treatments None Family Cancers Grandmother-maternal with breast cancer at age 68. LOCATION: The [facility] BREAST COMPOSITION: The breasts are heterogeneously dense,which may obscure small masses. FINDINGS: DIAGNOSTIC CATEGORY 1--NEGATIVE. NO CHANGE FROM COMPARISON ASSESSMENT. Scattered benign-appearing lymph nodes are present. RIGHT BREAST: No significant suspicious finding. LEFT BREAST: No significant suspicious finding. RECOMMENDATIONS: ROUTINE MAMMOGRAM AND CLINICAL EVALUATION IN 12 MONTHS. PLEASE NOTE: A NORMAL MAMMOGRAM DOES NOT EXCLUDE THE POSSIBILITY OFBREAST CANCER. A CLINICALLY SUSPICIOUS PALPABLE LUMP SHOULD BE BIOPSIED. Dictated by: Guille Ham MD on 01/01/2024 at 13:13 Approved by: Guille Ham MD on 01/01/2024 at 13:14 Dictated By: Guille Ham M.D. Signed By:01/01/24 1315 DD/ 1314 TD/TT: Waste Salvager: us [facility] Final Result documented in this encounter Visit Diagnoses Not on filedocumented in this encounter Care Teams Mold Unloader Relationship Specialty Start Date End Date Cierra Villalobos MD PCP - General Family Medicine 06/30/23 documented as of this encounter
--- OUTSIDE RECORDS SUMMARY | 2025-02-01 15:00 | XMS_ITS | Clinical Summary ---
Author Organization [facility] Address [address] [place] [address] Care Team Providers Care Export Administrator Name Role Phone Unavailable Primary Care Provider Unavailabl e Allergies No known active allergies Medications No known medications Social History Tobacco Use Types Packs/Day Years Used Date Smoking Tobacco: Never Assessed Comments Unknown Sex and Gender Information Value Date Recorded Sex Assigned at Not on file Legal Sex Female 12:40 PM EST Gender Identity Not on file Sexual Orientation Not on file Last Filed Vital Signs Vital Sign Reading Time Taken Comments Blood Pressure 104/78 03/13/2015 5:47 PM EST Pulse 72 03/13/2015 5:47 PM EST Temperature 37.2 C (99 F) 03/13/2015 5:47 PM EST Respiratory Rate - - Oxygen Saturation 98% 03/13/2015 5:47 PM EST Inhaled Oxygen Concentration - - Weight - - Height - - Body Mass Index - - Plan of Treatment Health Maintenance Due Date Last Done Comments Anxiety Screening 11/23/1993 Depression Screening 11/23/1993 HIV Screening 11/23/1993 Hepatitis C Screening 11/23/1993 DTaP,Tdap,Td Vaccine (1 - Tdap) 11/23/1994 Hepatitis B Vaccine (1 of 3 - 19+ 3-dose series) 11/23 Cervical Cancer Screening 11/23/[address] Colonography 11/23/2020 Cologuard (FIT-DNA) 11/23/2020 Colonoscopy 11/23/2020 Colorectal Cancer Screening 11/23/2020 Diabetes Screening 11/23/2020 Fecal Occult Blood 11/23/2020 Lipid Screening 11/23/2020 Sigmoidoscopy 11/23/2020 Covid-19 Vaccine ( season) 2024 Influenza Vaccine (#1) 2024
--- OUTSIDE RECORDS SUMMARY | 2025-02-01 15:00 | XMS_ITS | Clinical Summary ---
Author Organization [facility] Address [id number] [address] [place] [address] Care Team Providers Care Autocad Name Role Phone Unavailable Primary Care Provider Unavailabl e Allergies No known active allergies Medications venlafaxine XR (EFFEXOR-XR) 75 mg 24 hr capsule 0 11/11/2016 Ac tive CRYSELLE, 28, 0.3-30 mg-mcg per tablet 1 11/11/2016 Active chlorhexidine (PERIDEX) 0.12 % solutionIndicati ons:Pharyngitis, unspecified etiology Apply 15 mL to the mouth or throat 2 (two) times a day. 120 mL 0 12/04/2016 Active doxycycline (VIBRAMYCIN) 100 mg capsuleIndicatio ns:Pharyngitis, unspecified etiology Take 1 capsule by mouth twice daily for 10 days. 20 capsule 0 12/04/2016 Active Active Problems Problem Noted Date Diagnosed Date Hearing loss of left ear 12/04/2016 Pharyngitis 12/04/2016 Social History Tobacco Use Types Packs/Day Years Used Date Smoking Tobacco: Smoker, Current Status Unknown Cigarettes Alcohol Use Standard Drinks/Week Comments Not Asked 0 (1 standard drink = 0.6 oz pur e alcohol) Childcare Answer Date Recorded Childcare Unknown 09/30/2018 Employment Answer Date Recorded Employment Unknown 09/30/2018 Purpose - Life Answer Date Recorded Purpose and direction in life Unknown Comments Unknown Sex and Gender Information Value Date Recorded Sex Assigned at Not on file Legal Sex Female 11:35 AM EDT Gender Identity Not on file Sexual Orientation Not on file Last Filed Vital Signs Vital Sign Reading Time Taken Comments Blood Pressure 126/62 12/04/2016 9:52 AM EDT Pulse - - Temperature - - Respiratory Rate - - Oxygen Saturation - - Inhaled Oxygen Concentration - - Weight 60.3 kg (133 lb) 12/04/2016 9:52 AM EDT Height 167.6 cm (5' 6 ) 12/04/2016 9:52 AM EDT Body Mass Index 21.47 12/04/2016 9:52 AM EDT Plan of Treatment Health Maintenance Due Date Last Done Comments Depression Screening 1987 Tobacco Screening 1987 Adult BMI Screening 11/23/1993 DTaP,Tdap and Td Vaccines (1 - Tdap) 11/23/1994 Pap Smear 11/23/1996 Influenza Vaccine 12/20/2024 Medical Devices Not on file Insurance [employer]
--- OUTSIDE RECORDS SUMMARY | 2025-02-01 15:00 | XMS_ITS | Clinical Summary ---
Author Organization [facility] Address [address] [facility] [place] [address] Care Team Providers Care Exhibits Curator Name Role Phone Cierra Villalobos MD Primary Care Provider [phone] Allergies No known active allergies Medications venlafaxine (Effexor) 25 MG tablet every 12 (twelve) hours Active Family History Medical History Relation Name Comments Breast cancer Maternal Grandmother Heart disease Paternal Grandfather Heart disease Paternal Grandmother Relation Name Status Comments Father Alive Maternal Grandfather Maternal Grandmother Mother Alive Paternal Grandfather Paternal Grandmother Social History Tobacco Use Types Packs/Day Years Used Date Smoking Tobacco: Former Cigarettes Tobacco Cessation:Counseling Given: Not Answered Alcohol Use Standard Drinks/Week Comments Yes 0 [...] Sign Reading Time Taken Comments Blood Pressure 118/72 06/30/2023 1:46 PM EDT Pulse - - Temperature - - Respiratory Rate - - Oxygen Saturation - - Inhaled Oxygen Concentration - - Weight 69.4 kg (153 lb) 06/30/2023 1:46 PM EDT Height 170.2 cm (5' 7 ) 07/01/2022 12:00 PM EDT Body Mass Index 23.96 07/01/2022 12:00 PM EDT Plan of Treatment Not on file [place] [address] [place] [id number] Care Teams Exhibits Curator Relationship Specialty Start Date End Date Cierra Villalobos MD PCP - General Family Medicine 06/30/23
--- OUTSIDE RECORDS SUMMARY | 2025-02-01 15:06 | XMS_ITS | CCD ---
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 Name Role Phone LUZ ALBARADO Admitting Unavailable LUZ ALBARADO Attending Unavailable [facility], DR SAUCEDO Primary Care Unavailable KARASIK ., DR ORTIZ Admitting Unavailabl e KARASIK ., DR ORTIZ Consulting Unavailabl e KARASIK ., DR ORTIZ Attending Unavailabl e [facility], DR SAUCEDO Primary Care Unavailable [place], DR MARK Alvarez Consulting Unavailable BELJONI, [facility] Primary Care Unavailable KARASIK ., DR ORTIZ Admitting Unavailabl e KARASIK ., DR ORTIZ Consulting Unavailabl e KARASIK ., DR ORTIZ Attending [facility]availabl e [facility] Primary Care Unavailable DIAB ., SUSANA Admitting Unavailable DIAB ., SUSANA Consulting Unavailable DIAB ., SUSANA Attending Unavailable Cierra Villalobos Unavailable EDWIN ANAND Attending Unavailable Cierra Villalobos Primary Care Unavailable Serenity Renae Attending Unavailable Serenity Renae Admitting Unavailable Medications Current Medications Medication Drug Class(es) Dates Sig (Normalized) Sig (Original) 24 hr venlafaxine 150 mg extended release oral capsule (8 sources) Serotonin and Norepinephrine Reuptake Inhibitor Start: 07-03-2023 End: 06-29-2024 take 1 capsule by mouth once daily Venlafaxine 150 mg capsule,extended release 24hr Active 150 MG PO Daily June 29, 2024 12:13pm Start: 06-27-2023 End: 07-03-2023 take 1 capsule by mouth once daily Venlafaxine 75 mg capsule,extended release 24hr Discontinued 75 MG PO Daily 7 June 27, 2023 11:19am July 03, 2023 12:48pm take 1 capsule by [facility] every twenty-four hours Venlafaxine HCl ER 75 MG 1 tablet once a day Active Problems Active Problems Problem Classification Problem Date Documented Da te Episodic/Chronic Immunizations and screening for infectious disease (1 source) Encounter for screening for human papillomavirus (HPV); Translations: [ENC SCREENING HUMAN PAPILLOMAVIRUS] Onset: 07-02-2022 Episodic Miscellaneous mental health disorders (1 source) Other symptoms and signs involving emotional state Episodic Other connective tissue disease (1 source) Pain in left hand; Translations: [Pain in left hand] Onset: 10-12-2024 Episodic Other ear and sense organ disorders [...] Results Test Name Value Interpretation Reference Range Facility XR hand LT min 3V*on 025 XR hand LT min 3V* [facility] [address] [place] [address] XRay Report Signed Patient: Apryl Sanford MR#: [id number] : 1975 Acct:[id number] Age/Sex: 48 / F ADM Date: 10/12/24 Loc: [facility] Room: Type: [facility] CLI Attending Dr: Serenity Renae MD Copies to: Serenity Renae MD Ordering Provider: Serenity Renae MD Date of Service: 10/12/24 XR/XR hand LT min 3V*: M79.642 - Pain in left hand LEFT HAND - 4 views REASON FOR EXAM: Left thumb pain for one year COMPARISON: None FINDINGS: No focal soft tissue abnormality or acute bony process. Mild degenerative changes involving the CMC joint of the thumb. No bony erosions. XR/XR hand LT min 3V* IMPRESSION: MILD GENERATIVE CHANGES INVOLVING THE CMC JOINT OF THE THUMB. NO ACUTE BONY PROCESS. Impression dictated by: Chandana Harper Jr., D.O. 10/12/2024 11:01 AM Dictation Location: [place] [address] Transcribed By: [facility] 10/12/24 1101 Dictated By: Chandana Harper Jr, DO 10/12/24 1100 Signed By: 10/12/24 1101 Normal [facility] PAP ACOG PANEL 2: 30 to 65on 07-09-2022 . . Normal [facility] Comment on above: Result Comment: Perf ormed at: WB Performed By: #### [id number] #### [facility] [address] [address] [address] Surinder Hernandez Age Gdln ACOG Testing 30-65 Normal [facility] Comment on above: Performed By: #### [id number] #### [facility] [address] [address] [address] Surinder Hernandez DIAGNOSIS: Comment Normal [facility] Comment on above: Result Comment: NEGA TIVE FOR INTRAEPITHELIAL LESION OR MALIGNANCY. PREDOMINANCE OF COCCOBACILLI CONSISTENT WITH SHIFT IN VAGINAL MILLIE IS PRESENT. Performed at: WB Performed By: #### [id number] #### [facility] [address] [address] [address] Surinder Hernandez HPV Aptima Negative Normal Negative [facility] Comment on above: Result Comment: This nucleic acid amplification test detects fourteen high-risk HPV types (16,18,31,33,35,39,45,51,52,56,58,59,66,68) without differentiation. Performed at: =G Performed By: #### [id number] #### [facility] [address] [place] [address] Dr. Surinder Hernandez HPV Genotype Reflex Comment Normal [facility] Comment on above: Result Comment: Crit hitesh not met, HPV Genotype not performed. Performed at: WB Performed By: #### [id number] #### [facility] [address] [place] [address] Dr. Surinder Hernandez Methodology: Comment Normal [facility] Comment on above: Result Comment: This liquid based ThinPrep(R) pap test was screened with the use of an image guided system. Performed at: WB Performed By: #### [id number] #### [facility] [address] [place] [address] Dr. Surinder Hernandez Note: Comment Normal [facility] Comment on above: Result Comment: The Pap smear is a screening test designed to aid in the detection of premalignant and malignant conditions of the uterine cervix. It is not a diagnostic procedure and should not be used as the sole means of detecting cervical cancer. Both false-positive and false-negative reports do occur. . Performed at: WB Performed By: #### [id number] #### [facility] [address] [place] [address] Dr. Surinder Hernandez Performed by: Comment Normal [facility] Comment on above: Result Comment: Bruno Bustamante, Public Relations Supervisor (ASCP) Performed at: WB Performed By: #### [id number] #### [facility] [address] [place] [address] Dr. Surinder Hernandez Specimen adequacy: Comment Normal [facility] Comment on above: Result Comment: Sati sfactory for evaluation. Endocervical and/or squamous metaplastic cells (endocervical component) are present. Performed at: WB Performed By: #### [id number] #### [facility] [address] [place] [address] Dr. Surinder Hernandez CBC W MANUAL DIFFon 06-01-19 23 ATYPICAL LYMPH # 0.10 103/ul Normal [facility] Comment on above: Performed By: #### C TIFFANY #### [facility] [address] [place] [address] Dr. Surinder Hernandez ATYPICAL LYMPH % 3 % Normal [facility] Comment on above: Performed By: #### C BCMAN #### [facility] [address] [place] [address] Dr. Surinedr Hernandez BAND # Normal 0.0-0.3 [facility] Comment on above: Performed By: #### C BCMAN #### [facility] [address] [place] [address] Dr. Surinder Hernandez BAND % Normal 0-5 [facility] Comment on above: Performed By: #### C BCMAN #### [facility] [address] [place] [address] Dr. Surinder Hernandez BASOM # 0.00 103/ul Normal 0.00-0.10 [facility] Comment on above: Performed By: #### C BCAMRIT #### [facility] [address] [place] [address] Dr. Surinder Hernandez BASOM % 0.0 % Critically low 0.2-2.0 [facility] Comment on above: Performed By: #### C BCAMRIT #### [facility] [address] [place] [address] Dr. Surinder Hernandez BLAST # Normal [facility] Comment on above: Performed By: #### C BCAMRIT #### [facility] [address] [place] [address] Dr. Surinder Hernandez BLAST % Normal [facility] Comment on above: Performed By: #### C BCAMRIT #### [facility] [address] [place] [address] Dr. Surinder Hernandez CORRECTED WBC Normal 4.0-11.0 [facility] Comment on above: Performed By: #### C BCAMRIT #### [facility] [address] [place] [address] Dr. Surinder Hernandez EOS # 0.00 103/ul Normal 0.00-0.70 [facility] Comment on above: Performed By: #### C BCMAN #### [facility] [address] [place] [address] Dr. Surinder Hernandez EOS% 0.0 % Critically low 0.9-7.0 [facility] Comment on above: Performed By: #### C BCAMRIT #### [facility] [address] [address] [address] Surinder Hernandez HCT 39.5 % Normal 36.0-48.0 [facility] Comment on above: Performed By: #### C TIFFANY #### [facility] [address] [address] [address] Surinder Hernandez HGB 13.0 g/dl Normal 12.0-16.0 [facility] Comment on above: Performed By: #### C TIFFANY #### [facility] [address] [address] [address] Surinder Hernandez LYMPHM # 0.59 103/ul Critically low 1.20-3.80 [facility] Comment on above: Performed By: #### C TIFFANY #### [facility] [address] [place] [address] Dr. Surinder Hernandez LYMPHM% 17.0 % Critically low 20.5-60.0 [facility] Comment on above: Performed By: #### C TIFFANY #### [facility] [address] [place] [address] Dr. Surinder Hernandez MCH 30.3 pg Normal 26.7-34.0 [facility] Comment on above: Performed By: #### C TIFFANY #### [facility] [address] [place] [address] Dr. Surinder Hernandez MCHC 32.9 g/dl Normal 29.9-35.2 [facility] Comment on above: Performed By: #### C TIFFANY #### [facility] [address] [place] [address] Dr. Surinder Hernandez MCV 92.1 fL Normal 81.0-99.0 [facility] Comment on above: Performed By: #### C TIFFANY #### [facility] [address] [address] [address] Surinder Hernandez METAMYELOCYTE # Normal [facility] Comment on above: Performed By: #### C TIFFANY #### [facility] [address] [place] [address] Dr. Surinder Hernandez METAMYELOCYTE % Normal [facility] Comment on above: Performed By: #### C TIFFANY #### [facility] [address] [address] [address] Surinder Hernandez MONOM# 0.81 103/ul Critically high 0.30-0.80 [facility] Comment on above: Performed By: #### C TIFFANY #### [facility] [address] [address] [address] Surinder Hernandez MONOM% 23.0 % Critically high 1.7-12.0 [facility] Comment on above: Performed By: #### C TIFFANY #### [facility] [address] [place] [address] Dr. Surinder Hernandez MPV 9.9 fL Normal 9.5-13.5 [facility] Comment on above: Performed By: #### C TIFFANY #### [facility] [address] [place] [address] Dr. Surinder Hernandez MYELOCYTE # Normal [facility] Comment on above: Performed By: #### C TIFFANY #### [facility] [address] [place] [address] Dr. Surinder Hernandez MYELOCYTE % Normal [facility] Comment on above: Performed By: #### C TIFFANY #### [facility] [address] [place] [address] Dr. Surinder Hernandez NRBC Normal [facility] Comment on above: Performed By: #### C TIFFANY #### [facility] [address] [place] [address] Dr. Surinder Hernandez PLT 218 103/ul Normal 150-450 [facility] Comment on above: Performed By: #### C TIFFANY #### [facility] [address] [place] [address] Dr. Surinder Hernandez RBC 4.29 106/ul Normal 4.20-5.40 [facility] Comment on above: Performed By: #### C TIFFANY #### [facility] [address] [place] [address] Dr. Surinder Hernandez RDW 13.1 % Normal 11.0-15.0 [facility] Comment on above: Performed By: #### C TIFFANY #### [facility] [address] [place] [address] Dr. Surinder Hernandez SEG # 2.00 103/ul Normal 1.40-6.50 [facility] Comment on above: Performed By: #### C TIFFANY #### [facility] [address] [place] [address] Dr. Surinder Hernandez SEG % 57.0 % Normal 43.0-75.0 [facility] Comment on above: Performed By: #### C TIFFANY #### [facility] [address] [place] [address] Dr. Surinder Hernandez WBC 3.5 103/ul Critically low 4.0-11.0 [facility] Comment on above: Performed By: #### C TIFFANY #### [facility] [address] [place] [address] Dr. Surinder Hernandez Covid-19 PCR (CVDTB)on 05-22 SARS-CoV-2 (COVID-19) RNA ANTONIO+probe Ql (Unsp spec) Detected Abnormal NOT DETECTED [facility] Comment on above: Result Comment: This test is not yet approved or cleared by the [place] FDA. When there are no FDA-approved or cleared tests available, and other criteria are met, FDA can make tests available under an emergency access mechanism called an Emergency Use Authorization (EUA). The EUA for this test is supported by the Owner/Operator of Health and Human Service's (HHS's) declaration [...] used). Performed By: #### C VDTBH #### [facility] [address] [place] [address] Dr. Surinder Hernandez INFLUENZA A AND B AGon 06-01 [facility] SEE BELOW Normal [facility] Comment on above: Result Comment: Nega tive for Flu A protein angiten. Infection due to Flu A cannot be ruled out. Flu A angiten in the sample may be below the detection limit of the test. Performed By: #### I NFLUAB #### [facility] [address] [place] [address] Dr. Surinder [facility] Normal [facility] Comment on above: Result Comment: Nega tive for Flu B protein antigen. Infection due to Flu B cannot be ruled out. Flu B antigen in the sample may be below the detection limit of the test. Performed By: #### I NFLUAB #### [facility] [address] [place] [address] Dr. Surinder Hernandez INFLUENZA A AG Negative Normal NEGATIVE SEE COMMENT [facility] Comment on above: Performed By: #### I NFLUAB #### [facility] [address] [place] [address] Dr. Surinder Hernandez INFLUENZA B AG Negative Normal NEGATIVE SEE COMMENT [facility] Comment on above: Performed By: #### I NFLUAB #### [facility] [address] [place] [address] Dr. Surinder Hernandez PROF 14(COMP METB)on 023 Albumin [Mass/Vol] 3.6 g/dL Normal 3.4-5.0 [facility] Comment on above: Performed By: #### C MP #### [facility] [address] [place] [address] Dr. Surinder Hernandez Albumin/Globulin [Mass ratio] 1.2 {ratio} Normal [facility] Comment on above: Performed By: #### C MP #### [facility] [address] [place] [address] Dr. Surinder Hernandez ALP [Catalytic activity/Vol] 84 U/L Normal 46-116 [facility] Comment on above: Performed By: #### C MP #### [facility] [address] [place] [address] Dr. Surinder Hernandez ALT [Catalytic activity/Vol] 23 U/L Normal 14-59 [facility] Comment on above: Performed By: #### C MP #### [facility] [address] [address] [address] Surinder Hernandez Anion gap [Moles/Vol] 11.1 mmol/L Normal [facility] Comment on above: Performed By: #### C MP #### [facility] [address] [address] [address] Surinder Hernandez AST [Catalytic activity/Vol] 30 U/L Normal 15-37 [facility] Comment on above: Performed By: #### C MP #### [facility] [address] [address] [address] Surinder Hernandez Bilirubin [Mass/Vol] 0.3 mg/dL Normal 0.2-1.0 [facility] Comment on above: Performed By: #### C MP #### [facility] [address] [address] [address] Surinder Hernandez Calcium [Mass/Vol] 8.5 mg/dL Normal 8.5-10.1 [facility] Comment on above: Performed By: #### C MP #### [facility] [address] [address] [address] Surinder Hernandez Chloride [Moles/Vol] 102 mmol/L Normal 98-107 [facility] Comment on above: Performed By: #### C MP #### [facility] [address] [address] [address] Surinder Hernandez CO2 [Moles/Vol] 28.0 mmol/L Normal 21.0-32.0 [facility] Comment on above: Performed By: #### C MP #### [facility] [address] [address] [address] Surinder Hernandez Creatinine [Mass/Vol] 0.89 mg/dL Normal 0.55-1.02 [facility] Comment on above: Performed By: #### C MP #### [facility] [address] [address] [address] Surinder Hernandez EGFR-AF BAHAMIAN >60 Normal >=60 [facility] Comment on above: Performed By: #### C MP #### [facility] [address] [place] [address] Dr. Surinder Hernandez EGFR-NON AF BAHAMIAN >60 Normal >=60 [facility] Comment on above: Performed By: #### C MP #### [facility] [address] [place] [address] Dr. Surinder Hernandez Globulin (S) [Mass/Vol] 3.1 g/dL Normal [facility] Comment on above: Performed By: #### C MP #### [facility] [address] [address] [address] Surinder Hernandez Glucose [Mass/Vol] 92 mg/dL Normal 74-106 [facility] Comment on above: Performed By: #### C MP #### [facility] [address] [place] [address] Dr. Surinder Hernandez Potassium [Moles/Vol] 4.1 mmol/L Normal 3.5-5.1 [facility] Comment on above: Performed By: #### C MP #### [facility] [address] [place] [address] Dr. Surinder Hernandez Protein [Mass/Vol] 6.7 g/dL Normal 6.4-8.2 [facility] Comment on above: Performed By: #### C MP #### [facility] [address] [place] [address] Dr. Surinder Hernandez Sodium [Moles/Vol] 137 mmol/L Normal 136-145 [facility] Comment on above: Performed By: #### C MP #### [facility] [address] [place] [address] Dr. Surinder Hernandez Urea nitrogen [Mass/Vol] 10.0 mg/dL Normal 7.0-18.0 [facility] Comment on above: Performed By: #### C MP #### [facility] [address] [place] [address] Dr. Surinder Hernandez Urea nitrogen/Creatinine [Mass ratio] 11.2 mg/mg Normal [facility] Comment on above: Performed By: #### C MP #### [facility] [address] [place] [address] Dr. Surinder Hernandez TROPONIN, HIGH SENSITIVITYon 06-01-2022 HSTROP 6.0 pg/mL Normal 4.0-51.3 [facility] Comment on above: Result Comment: CUT- OFF POINTS HAVE BEEN ESTABLISHED BASED ON THE FOURTH UNIVERSAL DEFINITIONS OF MYOCARDIAL INFARCTION. THE UPPER REFERENCE LIMIT (URL) OF TROPONIN, DEFINED THE 99TH PERCENTILE OF cTnI DISTRIBUTION IN A REFERENCE POPULATION, HAS BEEN CONFIRMED THE DECISION THRESHOLD FOR SD DIAGNOSIS. Performed By: #### H STROPN #### [facility] [address] [address] [address] Surinder Hernandez HSTROP 4.8 pg/mL Normal 4.0-51.3 [facility] Comment on above: Result Comment: CUT- OFF POINTS HAVE BEEN ESTABLISHED BASED ON THE FOURTH UNIVERSAL DEFINITIONS OF MYOCARDIAL INFARCTION. THE UPPER REFERENCE LIMIT (URL) OF TROPONIN, DEFINED THE 99TH PERCENTILE OF cTnI DISTRIBUTION IN A REFERENCE POPULATION, HAS BEEN CONFIRMED THE DECISION THRESHOLD FOR SD DIAGNOSIS. Performed By: #### H STROPN #### [facility] [address] [place] [address] Dr. Surinder Hernandez MG MAMM SCREEN 3D ADAIR CADon 08-16-2021 MG MAMM SCREEN 3D ADAIR CAD Patient: APRYL SANFORD Exam Date: 08/16/2021 : 1975 Gender:F Ordering : DR ANGEL SINGH . Admission #: [id number] Family : Order #: [id number] CLICK HERE TO VIEW EXAM RADIOLOGY REPORT [...] breast cancer at age 68. LOCATION: [facility] BREAST COMPOSITION: Extremely dense, which lowers [...] Ham MD on 08/17/2021 at 07:18 Normal [facility] Auth for Release of Medical Recordson 07-07-2020 Auth for Release of Medical Records [id number]#1. 00CD:127 Normal [facility] Lab Reportson 05-29-2020 Lab Reports [id number]#1.0 0CD:127 [facility] Immunization Recordson 02-22 Immunization Records [id number]#1. 00CD:127 [facility] Lab Reportson 01-19-2020 Lab Reports [id number]#1.00 CD:127 [facility] Outside Mammographyon 2019 Outside Mammography [id number] 0CD:127 Normal [facility] Family Medicine Office/Clini c Noteon 01-04-2020 Family Medicine Office/Clinic Note Chief Complaint establish care HPI Staff PT is NEW in this office, needs established. Denies any concerns at this time. History of Present Illness Patient is here to establish care. She is seeing [facility] and she had neg PAP in 2019. [...] Daily, # 30 tab(s), Refills(s) 5, Pharmacy: [facility], 167, cm, 01/03/20 14:11:00 EDT, Height/Length Dosing, [...] malignant neoplasm of female breast: Grandparent. Normal [facility] Comment on above: Result Comment: Elec tronically Signed By: Everett MARTINEZ NP\.br\Date and Time Signed: 01/04/20 09:17 EDT Patient Educationon 01-04-20 Patient Education Family Medicine Preventive Care for [...] exam and preventive care every 6 months. 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 Patient Information ?2013 [facility]. [facility] Provider Letteron 12-29-2019 Provider Letter December 29, 2019 APRYL SANFORD [address] [facility] [place] [address] APRYL SANFORD 1975 Dear Apryl, We have been trying to reach you with no success. It is important that you return our call regarding your request for medication and needing an appointment upon receiving this letter. Also, at the time of your call, please provide us with your current information. Thank you for your prompt attention to this matter. Sincerely, Family Medicine [facility] Vital Signs Date Time Vital Sign Value Performing Clinician Facility 07-05-2024 14:38-0400 Body height 167.64 cm [facility] 07-05-2024 14:38-0400 Body mass index (BMI) [Ratio] 26.2 kg/m2 [facility] 07-05-2024 14:38-0400 Body weight 73.65 kg [facility] 07-05-2024 14:38-0400 Diastolic blood pressure 66 mm[Hg] [facility] 07-05-2024 14:38-0400 Heart rate 72 /min [facility] 07-05-2024 14:38-0400 Systolic blood pressure 104 mm[Hg] [facility] 06-02-2023 08:30-0500 Body height 167.64 cm Cierra Villalobos Other [employer] Other 06-02-2023 08:30-0500 Body mass index (BMI) [Ratio] 24.92 kg/m2 Cierra Villalobos Other [employer] Other 06-02-2023 08:30-0500 Body weight 70.04 kg Cierra Villalobos Other [employer] Other 06-02-2023 08:30-0500 Diastolic blood pressure 76 mm[Hg] Cierra Villalobos Other [employer] Other 06-02-2023 08:30-0500 Systolic blood pressure 112 mm[Hg] Cierra Villalobos Other [employer] Other Encounters Encounter Date Encounter Type Care Provider Facility Start: 10-12-2024 End: 10-12-2024 ambulatory Cierra Villalobos Facility:[facility] Start: 07-05-2024 End: 07-05-2024 ambulatory [facility] Work Phone: Start: 07-05-2024 End: 07-05-2024 Patient encounter procedure [facility] Physician [facility] Work Phone: Start: 06-30-2023 End: 06-30-2023 ambulatory EDWIN ANAND Not Available Start: 06-02-2023 End: 06-02-2023 ambulatory Cierra Villalobos Other [employer] Other Start: 06-02-2023 FQ visit new patient Cierra Villalobos [facility] Start: 07-01-2022 End: 07-01-2022 ambulatory EVERETT KENIAJONI Facility:[facility] Start: 06-01-2022 End: 06-01-2022 ambulatory EVERETT MARTINEZ Facility:[facility] Start: 02-27-2022 ambulatory LUZ ALBARADO Facility: [facility] Start: 08-16-2021 End: 08-17-[address] ANGEL SINGH . Facility:[facility] Payers Date Payer Category Payer Private Health Insurance [id number] 1975 Unknown [id number] 2.16.84 [id number] 1975 Unknown [id number] 2.16.84 [id number] 1975 Unknown [id number] 2.16.84 [id number] 1975 Unknown [id number] 2.16.84 [id number] 1975 Unknown [id number] 2.16.84 [id number] 1959 Self-pay Unknown [id number] Unknown [id number] Unknown [id number] 2.16.8 [id number] Social History Date Type Detail Facility Sex Assigned At [employer] Other Start: 07-05-2024 Tobacco smoking status NHIS Ex-smoker (finding) [facility] Start: 07-05-2024 Sex Female (finding) [facility] Start: 1975 Sex Assigned At Female [facility] NEGATED: Highlighted row [facility] Evaluation note 06-02-2023 Note Date & Type [...] is stable on med and present dose. [employer] Other Evaluation note Note Date & Type Note Facility Evaluation note No assessment information availa ble [facility] Work Phone: History general Narrative - Reported Note Date & Type Note Facility History general Narrative - Reported Type Medical History depression / anxiety Surgical History tonsilectomy Surgical History rhinoplasty Hospitalization History See above [employer] Other Summary Purpose Family History No Family History Records Found Relationship Condition Age at Onset Recorded Date/T stephen maternal grandmother Malignant neoplasm Unknown Diabetes mellitus Unknown paternal grandfather Heart disease Unknown father High blood cholesterol Unknown Hypertension Unknown Advance Directives No Advanced Directives Records Found Advance Directive Response Recorded Date/ Time Advance Directives No June 29 11:14am Chief Complaint and Reason for Visit Chief Complaint Admit Date Wellness July 05, 2024 2:3 5pm Additional Source Comments INFORMATION SOURCE (unrecogn ized section and content) DATE CREATED AUTHOR 07/09/[address] [facility] DATE CREATED AUTHOR AUTHOR'S ORGANIZ ATION 07/10/2022 [facility] DATE CREATED AUTHOR AUTHOR'S ORGANIZ ATION 07/01/2023 [facility] EPIC DATE CREATED AUTHOR AUTHOR'S ORGANIZ ATION 11/01/2024 [facility] REASON FOR VISIT (unrecogniz ed section and content) New Old Patient Care Teams (unrecognized sec tion and content) Team Status: Active Member Role Status Dates Cierra Villalobos MD Primary Care Provider Active Team Status: Inactive Member Role Status Dates Cierra Villalobos MD Primary Care Provide r, Attending Provider Active Start: July 05, 2024 End: July 05, 2024 Goals (unrecognized section and content) Goals may be documented in a n alternate section FOR RECORDS PERTAINING TO PATIENTS WHO ARE [...] BE BASED ON THE PRIMARY CLINICAL RECORDS. [facility]. provides no warranty or guarantee of the accuracy or completeness of information in this document.
--- NOTE | 2025-02-01 15:25 | MM_ITS ---
Patient Name: BOB SANFORD MR#: [id number] : 1975 Exam Date: 02/01/2025 Ordering Doctor: NANCY ANAND . RADIOLOGY REPORT PROCEDURE: MM TOMOSYNTHESIS SCREENING BI COMPARISON: MM TOMOSYNTHESIS SCREENING BI, 01/01/2024. MM TOMOSYNTHESIS SCREENING BI, 12/02/2022. MG MAMM SCREEN 3D CAESAR CAD, 08/16/2021. MG MAMM SCREEN CAESAR W CAD, 06/28/2015. INDICATIONS: screening Calculator Name NCI Breast Cancer Risk Assessment Tool 5 Year Breast Cancer Risk 1.00% Lifetime Breast Cancer Risk 10.00% Personal Breast Cancer No Personal Ovarian Cancer No Treatments None Family Cancers Grandmother-maternal with breast cancer at age ~68. LOCATION: [facility] BREAST COMPOSITION: The breasts are heterogeneously dense, which may obscure small masses. FINDINGS: DIAGNOSTIC CATEGORY 1--NEGATIVE. RIGHT BREAST: No significant suspicious finding. LEFT BREAST: No significant suspicious finding. RECOMMENDATIONS: ROUTINE MAMMOGRAM AND CLINICAL EVALUATION IN 12 MONTHS. Dictated by: Chandana Harper DO on 02/01/2025 at 15:50 Approved by: Chandana Harper DO on 02/01/2025 at 15:51
== END 2025-02-01 14:59 | disposition home or self-care (01) ==
LOC: MAMMO 14:58
PROVIDERS: PCP Family Medicine; Visit Provider Physician Assistant
DX: Z12.31 Encounter for screening mammogram for malignant neoplasm of breast (principal); Z80.3 Family history of malignant neoplasm of breast
CPT/HCPCS: 77063; 77067